=== PATIENT | female | born 1945 | race Caucasian/White ===

== ENCOUNTER 2021-12-12 10:32 | Inpatient (IN) | payer MEDICARE, BC ==
[~2021-12-12] VITALS: Ht 154.9 cm; Wt 52.6 kg
[2021-12-12 17:10] VITALS: BP 140/72
--- NOTE | 2021-12-12 17:15 | NUR ---
Admitted patient from [facility] via ambulance. Dx s/p L hip fracture, s/p ORIF. Body assessment done, noted with intact incision site on the left hip , no drainage identified and no bleeding seen. Noted with redness/skin rash on perineum area, and buttocks. Photo taken in chart. MD made aware of the admission and for the med recon. Patient denies pain, unable to see per her report, no issues with hearing. Kept comfortable, oriented to the room. no distress identified. will endorse to the next shift for continuity of care.
[2021-12-12] MEDS ORDERED: CLOT15CR5 TP (18:18)
[2021-12-12] MEDS ORDERED: PANT40TA2 PO (18:18)
[2021-12-12] MEDS ORDERED: LEVO50TA8 PO (18:18)
[2021-12-12] MEDS ORDERED: ACET650S13 RC (18:18)
[2021-12-12] MEDS ORDERED: LEVO250S3 PO (18:18)
[2021-12-12] MEDS ORDERED: ACET650T10 PO (18:18)
[2021-12-12] MEDS ORDERED: ISOS20TA8 PO (18:18)
[2021-12-12] MEDS ORDERED: HYDR50TA68 PO (18:18)
[2021-12-12] MEDS ORDERED: ENOX30DI5 SQ (18:18)
[2021-12-12] MEDS ORDERED: ATOR10TA PO (18:18)
[2021-12-12] MEDS ORDERED: NYST15CR TP (18:18)
[2021-12-12] MEDS ORDERED: ATEN50TA PO (18:18)
[2021-12-12] MEDS ORDERED: SENN-18 PO (18:18)
[2021-12-12] MEDS ORDERED: ALLO100T PO (18:18)
[2021-12-12] MEDS ORDERED: ONDA4TAB5 IVP (18:18)
[2021-12-12] MEDS ORDERED: HYDR-4209 PO (18:18)
[2021-12-12] MEDS ORDERED: ASPI81TA31 PO (18:18)
[2021-12-12] MEDS ORDERED: TEMA15CA5 PO (18:18)
[2021-12-12] MEDS ORDERED: DOCU250C14 PO (18:18)
[2021-12-12] MEDS ORDERED: BISA10SU61 RC (18:18)
[2021-12-12] MEDS ORDERED: LEVO500T90 PO (18:30)
[2021-12-12] MEDS ORDERED: HYDR100T27 PO (18:30)
[2021-12-12] MEDS ORDERED: SENNOSIDES 1 TABLET PO PRN (19:45)
[2021-12-12] MEDS ORDERED: BISACODYL 10 MG SUPP.RECT RC PRN (19:45)
[2021-12-12 20:42] VITALS: BP 143/55
[2021-12-12] MEDS: ISOSORBIDE DINITRATE 20 MG TABLET PO SCH (20:49)
[2021-12-12] MEDS: REMEDY ESSENTIAL ZINC PASTE 113 GM TOP SCH (20:49)
[2021-12-12] MEDS: ENOXAPARIN SODIUM 30 MG/0.3 ML DISP.SYRIN SQ SCH (20:57)
[2021-12-12] MEDS ORDERED: DOCUSATE SODIUM 100 MG CAPSULE PO SCH (21:00)
[2021-12-12] MEDS: hydrALAZINE HCL 50 MG TABLET PO SCH (21:04)
[2021-12-12] MEDS: TEMAZEPAM 15 MG CAPSULE PO PRN (22:03)
--- NOTE | 2021-12-13 02:00 | NUR ---
NSG: received patient lying on bed. Awake alert and oriented x3 with some periods of forgetfulness. patient is legally blind. On 3L via nasal cannula. Kept comfortable. assisted with adl's. Incontinent of bowel and bladder. call light w/in reach.
--- NOTE | 2021-12-13 04:01 | NUR ---
Awake alert and oriented x3-4 with some periods of fotgetfulness. VSS Needs attended. On 3L via nasal cannula. Kept comfortable. PM care done. Incontinent of bowel and bladder. No BM noted this shift. z
[2021-12-13 04:50] VITALS: BP 125/56
[2021-12-13] MEDS: PANTOPRAZOLE SODIUM 40 MG TABLET.DR PO SCH (06:10)
[2021-12-13] MEDS: LEVOTHYROXINE SODIUM 50 MCG TABLET PO SCH (06:11)
[2021-12-13 08:01] VITALS: BP 138/54
[2021-12-13] MEDS: ASPIRIN 81 MG TAB.CHEW PO SCH (08:27)
[2021-12-13] MEDS: ALLOPURINOL 100 MG TABLET PO SCH (08:27)
[2021-12-13] MEDS: levoFLOXacin 500 MG TABLET PO SCH (08:28)
[2021-12-13] MEDS: ATORVASTATIN 10 MG TABLET PO SCH (08:28)
[2021-12-13] MEDS: ISOSORBIDE DINITRATE 20 MG TABLET PO SCH ×2 (08:28→16:36)
[2021-12-13] MEDS: hydrALAZINE HCL 50 MG TABLET PO SCH ×3 (08:29→16:36)
[2021-12-13] MEDS: CLOTRIMAZOLE/BETAMET DIPROP CREAM 15 GM TUBE TP SCH ×2 (08:30→16:35)
[2021-12-13] MEDS: REMEDY ESSENTIAL ZINC PASTE 113 GM TOP SCH ×2 (08:30→20:38)
[2021-12-13] MEDS: NYSTATIN CREAM 30 GM TUBE TP SCH ×2 (08:30→16:35)
[2021-12-13] MEDS: HYDROCODONE/APAP 5-325MG TABLET PO PRN ×2 (08:48→17:48)
[2021-12-13] MEDS: DOCUSATE SODIUM 100 MG/10 ML LIQUID UDC PO SCH ×2 (08:48→20:32)
--- NOTE | 2021-12-13 11:59 | NUR ---
INTERDISCIPLINARY TEAM CONFERENCE
--- NOTE | 2021-12-13 14:46 | NUR ---
BSE completed: d/w RN regarding pt. Pt had difficulty troubling by stating, food was getting stuck. Pt is alert, interactive, blind, and able to follow directions premorbid diet: soft/thin dentition: functional/adequate. oral peripheral: symmetry oral phase: wFL for pureed and thin pharyngeal phase: no s/sx of aspiration with the current diet. clear vocal quality and no immediate or delayed cough is observed. Recommending to crush meds and given w/pureed or liquids straws ok pureed and thin follow aspiration precautions
[2021-12-13 16:16] VITALS: BP 125/62
--- NOTE | 2021-12-13 18:22 | NUR ---
The patient remained stable. PRN pain medication given 2x in the shift. Incision site intact, no bleeding or drainage noted. Still noted with redness to the buttocks/perineal area, applied skin protectant as ordered. DVT pumps in place. turned and repositioned for perfusion. ST eval was done today, agreed with the same assessment for puree diet and crushed pills. Assisted with all her needs. Kept call light within reach. Tolerated rehab this am. Frequent visual checks done. no distress identified during the shift. Aspiration precaution maintained. All due meds given. all needs attended. safety measures maintained. will endorse to the next shift for continuity of care.
[2021-12-13 20:00] VITALS: BP 122/57
[2021-12-13] MEDS: ENOXAPARIN SODIUM 30 MG/0.3 ML DISP.SYRIN SQ SCH (20:34)
[2021-12-13] MEDS: TEMAZEPAM 15 MG CAPSULE PO PRN (22:39)
[2021-12-14 04:00] VITALS: BP 120/60
--- NOTE | 2021-12-14 04:59 | NUR ---
NSG: slept will through the night. no c/o pain or discomfort at this time. assisted with adl's. kept clean and dry.call light w/in reach.
[2021-12-14] MEDS: PANTOPRAZOLE SODIUM 40 MG TABLET.DR PO SCH (06:07)
[2021-12-14] MEDS: LEVOTHYROXINE SODIUM 50 MCG TABLET PO SCH (06:07)
[2021-12-14 06:33] LABS: HEMATOCRIT 21.6 % (31.2-41.9); MEAN CORPUSCULAR HEMOGLOBIN 30.7 uug (24.7-32.8); MEAN CORPUSCULAR VOLUME 91.7 fL (75.5-95.3); PLATELET COUNT (AUTO) 307 K/uL (179-408)
[2021-12-14 07:25] LABS: IRON, SERUM 63 ug/dL (50-175)
[2021-12-14 07:29] LABS: ALANINE AMINOTRANSFERASE 14 U/L (14-59); ALKALINE PHOSPHATASE 167 U/L (50-136); ASPARTATE AMINOTRANSFERASE 21 U/L (15-37); BILIRUBIN,TOTAL 0.8 mg/dL (0.2-1.0); CARBON DIOXIDE 28 mmol/L (21-32); CHLORIDE 108 mmol/L (98-107); CHOLESTEROL 113 mg/dL (<200); CREATININE 2.7 mg/dL (0.6-1.3); GLUCOSE 90 mg/dL (74-106); HDL CHOLESTEROL 39 mg/dL (40-60); MAGNESIUM 1.7 mg/dL (1.8-2.4); PHOSPHOROUS 3.5 mg/dL (2.5-4.9); POTASSIUM 3.6 mmol/L (3.5-5.1); TOTAL PROTEIN, SERUM 5.3 g/dL (6.4-8.2); TRIGLYCERIDES 86 MG/DL (30-150); UREA NITROGEN, BLOOD 32 mg/dL (7-18)
[2021-12-14 07:43] VITALS: BP 119/52
[2021-12-14 07:50] LABS: THYROID STIMULATING HORMONE 6.255 mIU/mL (0.358-3.740)
[2021-12-14] MEDS: ATORVASTATIN 10 MG TABLET PO SCH (08:27)
[2021-12-14] MEDS: ASPIRIN 81 MG TAB.CHEW PO SCH (08:27)
[2021-12-14] MEDS: ALLOPURINOL 100 MG TABLET PO SCH (08:27)
[2021-12-14] MEDS: DOCUSATE SODIUM 100 MG/10 ML LIQUID UDC PO SCH ×2 (08:28→21:00)
[2021-12-14] MEDS: hydrALAZINE HCL 50 MG TABLET PO SCH ×3 (08:31→18:14)
[2021-12-14] MEDS: ISOSORBIDE DINITRATE 20 MG TABLET PO SCH ×2 (08:31→18:15)
[2021-12-14] MEDS: HYDROCODONE/APAP 5-325MG TABLET PO PRN (08:33)
[2021-12-14] MEDS: REMEDY ESSENTIAL ZINC PASTE 113 GM TOP SCH ×2 (08:33→21:07)
[2021-12-14] MEDS: CLOTRIMAZOLE/BETAMET DIPROP CREAM 15 GM TUBE TP SCH ×2 (08:34→18:15)
[2021-12-14] MEDS: NYSTATIN CREAM 30 GM TUBE TP SCH (08:34)
[2021-12-14] MEDS ORDERED: MAGNESIUM OXIDE 400 MG TABLET PO ONE (12:00)
[2021-12-14 16:21] VITALS: BP 142/65
--- NOTE | 2021-12-14 20:00 | NUR ---
NSG: received patient lying on bed. Awake alert and oriented x3 with some periods of forgetfulness. patient is legally blind. On 2L via nasal cannula. Kept comfortable. assisted with adl's. Incontinent of bowel and bladder. call light w/in reach.
[2021-12-14 20:26] VITALS: BP 122/64
[2021-12-14] MEDS: TEMAZEPAM 15 MG CAPSULE PO PRN (21:00)
[2021-12-14] MEDS: ENOXAPARIN SODIUM 30 MG/0.3 ML DISP.SYRIN SQ SCH (21:01)
[2021-12-15 04:14] VITALS: BP 117/56
--- NOTE | 2021-12-15 05:27 | NUR ---
NSG: slept will through the night. no c/o pain or discomfort at this time. assisted with adl's. good alejandro care provided for skin safety. kept clean and dry.call light w/in reach.
[2021-12-15] MEDS: LEVOTHYROXINE SODIUM 50 MCG TABLET PO SCH (06:22)
[2021-12-15] MEDS: PANTOPRAZOLE SODIUM 40 MG TABLET.DR PO SCH (06:22)
[2021-12-15 06:45] LABS: MEAN CORPUSCULAR HEMOGLOBIN 29.7 uug (24.7-32.8); MEAN CORPUSCULAR VOLUME 91.6 fL (75.5-95.3); PLATELET COUNT (AUTO) 284 K/uL (179-408)
[2021-12-15 07:02] LABS: CARBON DIOXIDE 26 mmol/L (21-32); CHLORIDE 107 mmol/L (98-107); CREATININE 2.5 mg/dL (0.6-1.3); GLUCOSE 88 mg/dL (74-106); MAGNESIUM 1.7 mg/dL (1.8-2.4); PHOSPHOROUS 3.4 mg/dL (2.5-4.9); POTASSIUM 3.9 mmol/L (3.5-5.1); UREA NITROGEN, BLOOD 31 mg/dL (7-18)
[2021-12-15 07:46] VITALS: BP 142/59
[2021-12-15] MEDS: MAGNESIUM SULFATE/D5W 100 ML IV SCH ×2 (10:30→10:52)
[2021-12-15] MEDS: ISOSORBIDE DINITRATE 20 MG TABLET PO SCH ×2 (10:46→17:00)
[2021-12-15] MEDS: ATORVASTATIN 10 MG TABLET PO SCH (10:46)
[2021-12-15] MEDS: hydrALAZINE HCL 50 MG TABLET PO SCH ×3 (10:46→17:00)
[2021-12-15] MEDS: DOCUSATE SODIUM 100 MG/10 ML LIQUID UDC PO SCH ×2 (10:47→20:38)
[2021-12-15] MEDS: ALLOPURINOL 100 MG TABLET PO SCH (10:47)
[2021-12-15] MEDS: levoFLOXacin 500 MG TABLET PO SCH (10:47)
[2021-12-15] MEDS: ASPIRIN 81 MG TAB.CHEW PO SCH (10:47)
[2021-12-15] MEDS: CLOTRIMAZOLE/BETAMET DIPROP CREAM 15 GM TUBE TP SCH ×2 (10:48→17:46)
[2021-12-15] MEDS: REMEDY ESSENTIAL ZINC PASTE 113 GM TOP SCH ×2 (10:48→20:38)
--- NOTE | 2021-12-15 10:55 | NUR ---
INDIVIDUALIZED PLAN OF CARE
--- NOTE | 2021-12-15 11:36 | NUR ---
WOUND CARE CONSULT: PT PRESENTS WITH RASH TO BUTTOCKS, PERINEUM AND INNER THIGHS, PRESENT ON ADMISSION. PT IS INCONTINENT. RECOMMENDATIONS MADE FOR SKIN PROTECTION. DISCUSSED WITH NURSING STAFF. CONCUR WITH CURRENT TREATMENT OF LOTRISONE CREAM, MAY FOLLOW WITH Ruddy TAYLOR MD IN AGREEMENT WITH PLAN OF CARE.
[2021-12-15] MEDS ORDERED: MAGNESIUM OXIDE 400 MG TABLET PO ONE (14:00)
[2021-12-15 16:13] VITALS: BP 135/59
--- NOTE | 2021-12-15 17:54 | NUR ---
pure wick installed to keep urine off skin rickie well
[2021-12-15 20:26] VITALS: BP 128/56
[2021-12-15] MEDS: ENOXAPARIN SODIUM 30 MG/0.3 ML DISP.SYRIN SQ SCH (20:39)
[2021-12-15] MEDS: TEMAZEPAM 15 MG CAPSULE PO PRN (20:47)
--- NOTE | 2021-12-16 04:24 | NUR ---
Awake alert and oriented x3-4 VSS No acute distress noted. Needs attended. Kept comfortable. Incontinent of bowel and bladder. Kept clean and dry. Will monitor patient. Fall precautions maintained. Siderails up for safety.
[2021-12-16 04:53] VITALS: BP 112/61
[2021-12-16] MEDS: PANTOPRAZOLE SODIUM 40 MG TABLET.DR PO SCH (06:18)
[2021-12-16] MEDS: LEVOTHYROXINE SODIUM 50 MCG TABLET PO SCH (06:19)
[2021-12-16 07:22] LABS: CARBON DIOXIDE 26 mmol/L (21-32); CHLORIDE 108 mmol/L (98-107); CREATININE 2.4 mg/dL (0.6-1.3); GLUCOSE 85 mg/dL (74-106); PHOSPHOROUS 3.4 mg/dL (2.5-4.9); POTASSIUM 3.9 mmol/L (3.5-5.1); UREA NITROGEN, BLOOD 32 mg/dL (7-18)
[2021-12-16 08:00] VITALS: BP 146/56
[2021-12-16] MEDS: DOCUSATE SODIUM 100 MG/10 ML LIQUID UDC PO SCH ×2 (09:00→20:33)
[2021-12-16] MEDS: ISOSORBIDE DINITRATE 20 MG TABLET PO SCH ×2 (09:16→17:23)
[2021-12-16] MEDS: hydrALAZINE HCL 50 MG TABLET PO SCH ×3 (09:16→17:23)
[2021-12-16] MEDS: ASPIRIN 81 MG TAB.CHEW PO SCH (09:16)
[2021-12-16] MEDS: ATORVASTATIN 10 MG TABLET PO SCH (09:17)
[2021-12-16] MEDS: ALLOPURINOL 100 MG TABLET PO SCH (09:18)
[2021-12-16] MEDS: CLOTRIMAZOLE/BETAMET DIPROP CREAM 15 GM TUBE TP SCH ×2 (09:19→17:24)
[2021-12-16] MEDS: REMEDY ESSENTIAL ZINC PASTE 113 GM TOP SCH ×2 (09:19→20:36)
--- NOTE | 2021-12-16 16:35 | NUR ---
Received patient lying on bed. Awake alert and oriented x3 able to let her needs known with some periods of forgetfulness. patient is legally blind Up in W/C with PT and had a shower by OT tolerated well. On 2L via nasal cannula pt requested to be wean from O2 we took O2 off x 15 min O2 sat yoko to 90% related to DR Fisher with new order for STAT CXR order noted and carried out. Kept comfortable. assisted with as need it with adl's.Safety precautions in place call light w/in reach.
[2021-12-16 16:53] VITALS: BP 126/56
[2021-12-16] MEDS ORDERED: FUROSEMIDE 40 MG TABLET PO ONE (17:45)
[2021-12-16 20:20] VITALS: BP 121/52
[2021-12-16] MEDS: ENOXAPARIN SODIUM 30 MG/0.3 ML DISP.SYRIN SQ SCH (20:36)
[2021-12-16] MEDS: TEMAZEPAM 15 MG CAPSULE PO PRN (20:38)
[2021-12-16] MEDS ORDERED: ALBUTEROL SULFATE 2.5 MG/3 ML NEBU NEB PRN (20:45)
--- NOTE | 2021-12-16 21:42 | NUR ---
Awake alert and oriented x4 all needs attended. Incontinent of urine and BM. Kept clean and dry. Purewick applied draining yellow urine. Took meds without difficulty. Repositioned for comfort. Turned q2 hrs. Will monitor patient. Siderails up for safety.VSS.
[2021-12-17 04:38] VITALS: BP 127/52
[2021-12-17] MEDS: LEVOTHYROXINE SODIUM 50 MCG TABLET PO SCH (06:10)
[2021-12-17] MEDS: PANTOPRAZOLE SODIUM 40 MG TABLET.DR PO SCH (06:10)
[2021-12-17 08:00] VITALS: BP 137/81
--- NOTE | 2021-12-17 08:00 | NUR ---
Received patient awake in bed. Easily arousable. AO x 3. On 3L nasal cannula. No distress noted at this time. No shortness of breath. Safety precautions in place. Will continue to monitor patient
[2021-12-17] MEDS: ASPIRIN 81 MG TAB.CHEW PO SCH (08:57)
[2021-12-17] MEDS: ATORVASTATIN 10 MG TABLET PO SCH (08:57)
[2021-12-17] MEDS: DOCUSATE SODIUM 100 MG/10 ML LIQUID UDC PO SCH ×3 (08:57→21:04)
[2021-12-17] MEDS: ALLOPURINOL 100 MG TABLET PO SCH (08:58)
[2021-12-17] MEDS: ISOSORBIDE DINITRATE 20 MG TABLET PO SCH ×2 (08:58→17:48)
[2021-12-17] MEDS: hydrALAZINE HCL 50 MG TABLET PO SCH ×3 (08:58→17:48)
[2021-12-17] MEDS: levoFLOXacin 500 MG TABLET PO SCH (08:58)
[2021-12-17] MEDS: CLOTRIMAZOLE/BETAMET DIPROP CREAM 15 GM TUBE TP SCH ×2 (08:59→18:07)
[2021-12-17] MEDS: PROTEIN SUPPLEMENT (PROSTAT) 30 ML LIQUID PO SCH (08:59)
[2021-12-17] MEDS: REMEDY ESSENTIAL ZINC PASTE 113 GM TOP SCH ×2 (08:59→21:06)
[2021-12-17 16:17] VITALS: BP 119/56
[2021-12-17 20:19] VITALS: BP 121/51
[2021-12-17] MEDS: ENOXAPARIN SODIUM 30 MG/0.3 ML DISP.SYRIN SQ SCH (21:05)
[2021-12-17] MEDS: TEMAZEPAM 15 MG CAPSULE PO PRN (21:05)
--- NOTE | 2021-12-17 21:15 | NUR ---
PATIENT IN BED. NOTED TO BE LEGALLY BLIND. AAOX4. ABLE TO MAKE NEEDS KNOWN. FREQUENTLY COMPLAINS OF MEDICATION REGIMEN, REFUSED TO TAKE DOCUSATE SODIUM. PT REQUESTED FOR PRN DOSE OF RESTORIL FOR INSOMNIA, GIVEN ORDERED. SAFETY PRECAUTIONS IN PLACE. WILL CONTINUE TO MONITOR.
[2021-12-18] VITALS (8 sets, daily range): BP systolic 118–142; BP diastolic 46–72
[2021-12-18] MEDS: LEVOTHYROXINE SODIUM 50 MCG TABLET PO SCH (06:33)
[2021-12-18] MEDS: PANTOPRAZOLE SODIUM 40 MG TABLET.DR PO SCH (06:33)
--- NOTE | 2021-12-18 06:51 | NUR ---
PATIENT SLEPT THROUGH THE NIGHT WITH NO COMPLAINTS. NO ACUTE DISTRESS NOTED AT THIS TIME. COMPLIANT WITH MORNING MEDICATIONS. PT WANTS MARGO, MATERNITY FLOOR SUPERVISOR TO REACH OUT TO HER SON SINCE THEY'VE BEEN TRYING TO GET A HOLD OF HIM BUT CANNOT. O2 TITRATED DOWN TO 2LPM, SATURATING AT 98%. SAFETY PRECAUTIONS MAINTAINED. WILL ENDORSE TO DAY SHIFT.
[2021-12-18 06:58] LABS: MEAN CORPUSCULAR HEMOGLOBIN 30.8 uug (24.7-32.8); MEAN CORPUSCULAR VOLUME 90.7 fL (75.5-95.3); PLATELET COUNT (AUTO) 208 K/uL (179-408)
[2021-12-18 07:01] LABS: HEMATOCRIT 20.9 % (31.2-41.9)
[2021-12-18 07:45] LABS: ALANINE AMINOTRANSFERASE 12 U/L (14-59); ALKALINE PHOSPHATASE 130 U/L (50-136); ASPARTATE AMINOTRANSFERASE 16 U/L (15-37); BILIRUBIN,TOTAL 0.7 mg/dL (0.2-1.0); CARBON DIOXIDE 29 mmol/L (21-32); CHLORIDE 104 mmol/L (98-107); CREATININE 2.3 mg/dL (0.6-1.3); GLUCOSE 93 mg/dL (74-106); MAGNESIUM 1.5 mg/dL (1.8-2.4); PHOSPHOROUS 4.1 mg/dL (2.5-4.9); POTASSIUM 3.7 mmol/L (3.5-5.1); TOTAL PROTEIN, SERUM 5.4 g/dL (6.4-8.2); UREA NITROGEN, BLOOD 28 mg/dL (7-18)
[2021-12-18] MEDS: PROTEIN SUPPLEMENT (PROSTAT) 30 ML LIQUID PO SCH ×2 (08:00→08:13)
[2021-12-18] MEDS: ISOSORBIDE DINITRATE 20 MG TABLET PO SCH ×2 (08:10→16:39)
[2021-12-18] MEDS: hydrALAZINE HCL 50 MG TABLET PO SCH ×3 (08:11→16:39)
[2021-12-18] MEDS: ASPIRIN 81 MG TAB.CHEW PO SCH (08:12)
[2021-12-18] MEDS: ATORVASTATIN 10 MG TABLET PO SCH (08:12)
[2021-12-18] MEDS: ALLOPURINOL 100 MG TABLET PO SCH (08:12)
[2021-12-18] MEDS: REMEDY ESSENTIAL ZINC PASTE 113 GM TOP SCH ×2 (08:13→20:02)
[2021-12-18] MEDS: CLOTRIMAZOLE/BETAMET DIPROP CREAM 15 GM TUBE TP SCH ×2 (08:13→16:40)
[2021-12-18] MEDS: DOCUSATE SODIUM 100 MG/10 ML LIQUID UDC PO SCH ×2 (08:13→20:02)
[2021-12-18] MEDS: HYDROCODONE/APAP 5-325MG TABLET PO PRN (08:34)
--- NOTE | 2021-12-18 11:43 | NUR ---
Reported Hgb 7.1, Hct 20.[address] Fihser, ordered to transfuse one unit of PRBCs. Patient refused to have BT. MD made aware. will continue to monitor. no s/s of active bleeding, denies discomfort. incision site intact.
[2021-12-18] MEDS ORDERED: MAGNESIUM OXIDE 400 MG TABLET PO ONE (12:00)
--- NOTE | 2021-12-18 12:28 | NUR ---
Explained and read the information regarding blood transfusion. Patient is aware of the risk. Still refused to have BT. Patient signed consent for refusal to blood transfusion, secured in chart. will continue monitor.
--- NOTE | 2021-12-18 17:15 | NUR ---
Patient changed her mind, she said she is okay to get blood transfusion. Consent obtained and signed, secured in the chart. made aware. Will continue to monitor.
--- NOTE | 2021-12-18 18:43 | NUR ---
The patient remained stable, incision site intact, no bleeding. Inserted IV to the left wrist, G20, tolerated well. Type and screen done by the lab, awaiting blood availability for transfusion. PRN pain medication given in the am prior to rehab. Assisted with all her needs. Kept call light within reach. Aspiration precaution maintained. Turning and repositioned done when in bed. Frequent visual checks done. no distress identified during the shift. all needs attended. safety measures maintained. will endorse to the next shift for continuity of care.
--- NOTE | 2021-12-18 19:30 | NUR ---
Received patient lying in bed. AAOX4. In no acute distress. Denies any pain or SOB at this time. O2 at 1LPM via NC in place. O2 sat at96%. Left wrist IV site intact and patent. Awaiting blood transfusion 1 unit PRBC. Needs assessed and attended to. Safety measure initiated and call light within reached.
[2021-12-18] MEDS: ENOXAPARIN SODIUM 30 MG/0.3 ML DISP.SYRIN SQ SCH (20:02)
--- NOTE | 2021-12-18 22:17 | NUR ---
Blood transfusion of 1 unit PRBC started at 2202. No adverse reaction noted at this time. Continue to monitor.
[2021-12-19 00:02] VITALS: BP 125/51
[2021-12-19 00:30] VITALS: BP 127/55
--- NOTE | 2021-12-19 00:30 | NUR ---
Completed transfusion of 1 unit PRBC. No adverse reaction noted. Patient tolerated procedure well.
[2021-12-19] MEDS: TEMAZEPAM 15 MG CAPSULE PO PRN ×2 (00:38→22:17)
[2021-12-19 04:27] VITALS: BP 137/53
[2021-12-19] MEDS: LEVOTHYROXINE SODIUM 50 MCG TABLET PO SCH (06:08)
[2021-12-19] MEDS: PANTOPRAZOLE SODIUM 40 MG TABLET.DR PO SCH (06:08)
--- NOTE | 2021-12-19 06:16 | NUR ---
AAOX4. In no acute distress. Incision site on left hip clean and dry. O2 at 1LPM via NC in place. Left wrist IV site intact and patent. Needs attended to and met. Safety measure maintained and call light within reached.
[2021-12-19 07:49] VITALS: BP_SYST 135; BP_SYST 140; BP_DIAS 59
[2021-12-19] MEDS: ALLOPURINOL 100 MG TABLET PO SCH (08:27)
[2021-12-19] MEDS: ISOSORBIDE DINITRATE 20 MG TABLET PO SCH ×2 (08:29→17:10)
[2021-12-19] MEDS: ATORVASTATIN 10 MG TABLET PO SCH (08:31)
[2021-12-19] MEDS: ASPIRIN 81 MG TAB.CHEW PO SCH (08:31)
[2021-12-19] MEDS: DOCUSATE SODIUM 100 MG/10 ML LIQUID UDC PO SCH ×2 (08:31→21:12)
[2021-12-19] MEDS: PROTEIN SUPPLEMENT (PROSTAT) 30 ML LIQUID PO SCH (08:45)
[2021-12-19] MEDS: levoFLOXacin 500 MG TABLET PO SCH (08:45)
[2021-12-19] MEDS: CHOLECALCIFEROL 1,000 UNIT TABLET PO SCH (09:14)
[2021-12-19] MEDS: hydrALAZINE HCL 50 MG TABLET PO SCH ×3 (09:15→17:10)
[2021-12-19] MEDS: REMEDY ESSENTIAL ZINC PASTE 113 GM TOP SCH ×2 (09:23→21:12)
[2021-12-19] MEDS: CLOTRIMAZOLE/BETAMET DIPROP CREAM 15 GM TUBE TP SCH ×2 (09:24→17:09)
[2021-12-19 15:40] VITALS: BP 129/56
[2021-12-19] MEDS: HYDROCODONE/APAP 5-325MG TABLET PO PRN ×2 (15:40→22:17)
[2021-12-19 19:55] LABS: HEMATOCRIT 26.1 % (31.2-41.9)
[2021-12-19 20:49] VITALS: BP 131/54
[2021-12-19] MEDS: ENOXAPARIN SODIUM 30 MG/0.3 ML DISP.SYRIN SQ SCH (21:15)
--- NOTE | 2021-12-20 04:34 | NUR ---
AAOx3-4 All needs attended. Fall precautions maintained. Call mathur within reach. All due meds given without difficulty. Meds given with apple sauce. No acute distress noted. Medicated for pain as needed. VSS.
[2021-12-20 04:39] VITALS: BP 124/49
[2021-12-20] MEDS: PANTOPRAZOLE SODIUM 40 MG TABLET.DR PO SCH (06:13)
[2021-12-20] MEDS: LEVOTHYROXINE SODIUM 50 MCG TABLET PO SCH (06:16)
[2021-12-20 08:00] VITALS: BP 140/55
[2021-12-20] MEDS: DOCUSATE SODIUM 100 MG/10 ML LIQUID UDC PO SCH ×3 (09:00→20:52)
[2021-12-20] MEDS: ATORVASTATIN 10 MG TABLET PO SCH (09:58)
[2021-12-20] MEDS: ASPIRIN 81 MG TAB.CHEW PO SCH (09:58)
[2021-12-20] MEDS: ALLOPURINOL 100 MG TABLET PO SCH (09:58)
[2021-12-20] MEDS: CHOLECALCIFEROL 1,000 UNIT TABLET PO SCH (09:58)
[2021-12-20] MEDS: REMEDY ESSENTIAL ZINC PASTE 113 GM TOP SCH ×2 (10:00→21:00)
[2021-12-20] MEDS: CLOTRIMAZOLE/BETAMET DIPROP CREAM 15 GM TUBE TP SCH ×2 (10:01→17:21)
[2021-12-20] MEDS: PROTEIN SUPPLEMENT (PROSTAT) 30 ML LIQUID PO SCH (10:01)
[2021-12-20] MEDS: ISOSORBIDE DINITRATE 20 MG TABLET PO SCH ×2 (10:03→17:27)
[2021-12-20] MEDS: hydrALAZINE HCL 50 MG TABLET PO SCH ×3 (10:04→17:27)
[2021-12-20] MEDS: HYDROCODONE/APAP 5-325MG TABLET PO PRN ×2 (12:49→20:53)
--- NOTE | 2021-12-20 15:31 | NUR ---
INTERDISCIPLINARY TEAM CONFERENCE
[2021-12-20 16:00] VITALS: BP 133/58
[2021-12-20 20:41] VITALS: BP 119/48
[2021-12-20] MEDS: ENOXAPARIN SODIUM 30 MG/0.3 ML DISP.SYRIN SQ SCH (20:54)
[2021-12-20 22:20] VITALS: BP 137/57
[2021-12-20] MEDS: TEMAZEPAM 15 MG CAPSULE PO PRN (22:47)
--- NOTE | 2021-12-20 22:55 | NUR ---
Patient given restoril dose for sleep and vomited, head of bed elevated.vital signs checked, cleaned and kept dry
--- NOTE | 2021-12-21 00:28 | NUR ---
patient is still awake. and unable to sleep.will call the snuff container inspector physician for orders
--- NOTE | 2021-12-21 00:54 | NUR ---
Restoril dose wasted as the patient vomited the dose.and will give another dose as per the charge nurse.
[2021-12-21] MEDS: TEMAZEPAM 15 MG CAPSULE PO PRN ×2 (00:57→21:30)
--- NOTE | 2021-12-21 01:57 | NUR ---
asleep Addendum: 12/21/21 at 0159 by [facility] RN1 RN medication need to be crushed and given with apple sauce, tolerated.
--- NOTE | 2021-12-21 02:50 | NUR ---
asleep. with no untoward manifestations
--- NOTE | 2021-12-21 04:31 | NUR ---
noted patient has hard productive cough,will inform physician in the morning. asleep.arousable
[2021-12-21 04:45] VITALS: BP 122/51
--- NOTE | 2021-12-21 05:45 | NUR ---
pharmacy called as the patient protonix dose is tablet and is unable to be crushed,order change to protonix packet as it can be crushed,
[2021-12-21] MEDS: LEVOTHYROXINE SODIUM 50 MCG TABLET PO SCH (06:37)
[2021-12-21 07:45] VITALS: BP 131/51
[2021-12-21] MEDS: PROTEIN SUPPLEMENT (PROSTAT) 30 ML LIQUID PO SCH (09:46)
[2021-12-21] MEDS: hydrALAZINE HCL 50 MG TABLET PO SCH ×3 (09:47→17:44)
[2021-12-21] MEDS: ASPIRIN 81 MG TAB.CHEW PO SCH (09:47)
[2021-12-21] MEDS: CHOLECALCIFEROL 1,000 UNIT TABLET PO SCH (09:48)
[2021-12-21] MEDS: PANTOPRAZOLE ORAL SUSPENSION 40 MG SUSPDR.PKT PO SCH (09:48)
[2021-12-21] MEDS: levoFLOXacin 500 MG TABLET PO SCH (09:49)
[2021-12-21] MEDS: ISOSORBIDE DINITRATE 20 MG TABLET PO SCH ×2 (09:56→17:45)
[2021-12-21] MEDS: ATORVASTATIN 10 MG TABLET PO SCH (09:56)
[2021-12-21] MEDS: CLOTRIMAZOLE/BETAMET DIPROP CREAM 15 GM TUBE TP SCH ×2 (09:58→17:46)
[2021-12-21] MEDS: REMEDY ESSENTIAL ZINC PASTE 113 GM TOP SCH ×2 (09:59→21:30)
[2021-12-21] MEDS: DOCUSATE SODIUM 100 MG/10 ML LIQUID UDC PO SCH ×3 (10:18→21:29)
[2021-12-21] MEDS: ALLOPURINOL 100 MG TABLET PO SCH (10:18)
[2021-12-21 15:14] VITALS: BP 108/51
--- NOTE | 2021-12-21 17:56 | NUR ---
PT remain AAOx3-4 legally blind.All needs attended. Fall precautions maintained. Call mathur within reach.All due meds given without difficulty was seen by rabbler with new order for soft diet . 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 Meds given with apple sauce. No acute distress noted, no c/o of pain . noted with new order for X-Ray of L hip as a f/U for S/P ORIF of L hip
[2021-12-21 20:00] VITALS: BP 112/55
[2021-12-21] MEDS: ENOXAPARIN SODIUM 30 MG/0.3 ML DISP.SYRIN SQ SCH (21:29)
[2021-12-21] MEDS: HYDROCODONE/APAP 5-325MG TABLET PO PRN (21:30)
[2021-12-22 04:17] VITALS: BP 94/58
[2021-12-22] MEDS: LEVOTHYROXINE SODIUM 50 MCG TABLET PO SCH (06:35)
[2021-12-22 07:47] VITALS: BP 135/55
[2021-12-22] MEDS: PROTEIN SUPPLEMENT (PROSTAT) 30 ML LIQUID PO SCH (08:00)
[2021-12-22] MEDS: DOCUSATE SODIUM 100 MG/10 ML LIQUID UDC PO SCH ×2 (09:40→20:36)
[2021-12-22] MEDS: hydrALAZINE HCL 50 MG TABLET PO SCH ×3 (09:40→17:36)
[2021-12-22] MEDS: ASPIRIN 81 MG TAB.CHEW PO SCH (09:40)
[2021-12-22] MEDS: CHOLECALCIFEROL 1,000 UNIT TABLET PO SCH (09:41)
[2021-12-22] MEDS: ISOSORBIDE DINITRATE 20 MG TABLET PO SCH ×2 (09:41→17:35)
[2021-12-22] MEDS: ATORVASTATIN 10 MG TABLET PO SCH (09:41)
[2021-12-22] MEDS: ALLOPURINOL 100 MG TABLET PO SCH (09:41)
[2021-12-22] MEDS: REMEDY ESSENTIAL ZINC PASTE 113 GM TOP SCH ×2 (09:42→20:36)
[2021-12-22] MEDS: CLOTRIMAZOLE/BETAMET DIPROP CREAM 15 GM TUBE TP SCH ×2 (09:42→17:37)
[2021-12-22] MEDS: levoFLOXacin 500 MG TABLET PO SCH (09:43)
[2021-12-22] MEDS: PANTOPRAZOLE ORAL SUSPENSION 40 MG SUSPDR.PKT PO SCH (09:50)
[2021-12-22 16:00] VITALS: BP 95/56
--- NOTE | 2021-12-22 16:04 | NUR ---
PT remain AAOx3-4 legally blind. respirations even and unlabored O2 at 2l via N/C O2 sat 97% All needs attended, assisted to BR as need it able to ambulate with FWW. Fall precautions maintained. Call mathur within reach.All due meds given without difficulty was seen by workers' compensation mediator with new order for soft diet . 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 Meds given with apple sauce tolerated well
[2021-12-22 20:00] VITALS: BP 126/56
[2021-12-22] MEDS: ENOXAPARIN SODIUM 30 MG/0.3 ML DISP.SYRIN SQ SCH (20:31)
[2021-12-22] MEDS: HYDROCODONE/APAP 5-325MG TABLET PO PRN (20:42)
[2021-12-22] MEDS: TEMAZEPAM 15 MG CAPSULE PO PRN (21:19)
[2021-12-23 04:00] VITALS: BP 117/56
[2021-12-23] MEDS: LEVOTHYROXINE SODIUM 50 MCG TABLET PO SCH (06:15)
--- NOTE | 2021-12-23 06:33 | NUR ---
Pt slept throughout the night, Restoril PRN given. No acute changes noted. Call light placed within reach. All needs attended. Will endorse to next shift for continuity of care.
[2021-12-23 07:46] VITALS: BP 134/54
[2021-12-23] MEDS: ATORVASTATIN 10 MG TABLET PO SCH (08:34)
[2021-12-23] MEDS: ASPIRIN 81 MG TAB.CHEW PO SCH (08:34)
[2021-12-23] MEDS: ALLOPURINOL 100 MG TABLET PO SCH (08:34)
[2021-12-23] MEDS: hydrALAZINE HCL 50 MG TABLET PO SCH ×3 (08:34→17:48)
[2021-12-23] MEDS: CHOLECALCIFEROL 1,000 UNIT TABLET PO SCH (08:34)
[2021-12-23] MEDS: PANTOPRAZOLE ORAL SUSPENSION 40 MG SUSPDR.PKT PO SCH (08:35)
[2021-12-23] MEDS: HYDROCODONE/APAP 5-325MG TABLET PO PRN ×2 (08:35→20:19)
[2021-12-23] MEDS: ISOSORBIDE DINITRATE 20 MG TABLET PO SCH ×2 (08:42→17:48)
[2021-12-23] MEDS: DOCUSATE SODIUM 100 MG/10 ML LIQUID UDC PO SCH ×2 (08:44→20:25)
[2021-12-23] MEDS: CLOTRIMAZOLE/BETAMET DIPROP CREAM 15 GM TUBE TP SCH ×2 (09:00→17:51)
[2021-12-23] MEDS: REMEDY ESSENTIAL ZINC PASTE 113 GM TOP SCH ×2 (09:00→20:19)
[2021-12-23 09:57] LABS: HEMATOCRIT 28.9 % (31.2-41.9); MEAN CORPUSCULAR HEMOGLOBIN 29.4 uug (24.7-32.8); PLATELET COUNT (AUTO) 217 K/uL (179-408)
[2021-12-23 10:08] LABS: ALANINE AMINOTRANSFERASE 12 U/L (14-59); ALKALINE PHOSPHATASE 109 U/L (50-136); ASPARTATE AMINOTRANSFERASE 13 U/L (15-37); BILIRUBIN,TOTAL 0.6 mg/dL (0.2-1.0); CARBON DIOXIDE 30 mmol/L (21-32); CHLORIDE 104 mmol/L (98-107); CREATININE 2.5 mg/dL (0.6-1.3); GLUCOSE 105 mg/dL (74-106); MAGNESIUM 1.7 mg/dL (1.8-2.4); POTASSIUM 3.8 mmol/L (3.5-5.1); UREA NITROGEN, BLOOD 21 mg/dL (7-18)
[2021-12-23] MEDS ORDERED: ALBUTEROL SULFATE 2.5 MG/3 ML NEBU NEB PRN (12:30)
--- NOTE | 2021-12-23 13:45 | NUR ---
Patient transferred to [facility] for wound care and continuation of antibiotics. No s/s of discomfort or distress. IV to right forearm left for continuation of IV antibiotics. Dressing to right let changed, no s/s of infection, patient states painful to change the dressing. All belongings and medications returned to the patient. Report given to DEE DEE Anguiano candy supervisor at [facility]. Transfer pack given to ambulance crew along with report.
[2021-12-23 16:00] VITALS: BP 135/52
[2021-12-23 20:00] VITALS: BP 122/52
[2021-12-23] MEDS: ENOXAPARIN SODIUM 30 MG/0.3 ML DISP.SYRIN SQ SCH (20:20)
[2021-12-23] MEDS: TEMAZEPAM 15 MG CAPSULE PO PRN (21:39)
[2021-12-24 04:00] VITALS: BP 130/53
[2021-12-24] MEDS: LEVOTHYROXINE SODIUM 50 MCG TABLET PO SCH (06:07)
[2021-12-24 07:30] VITALS: BP 142/56
[2021-12-24] MEDS: hydrALAZINE HCL 50 MG TABLET PO SCH ×3 (08:54→17:00)
[2021-12-24] MEDS: ASPIRIN 81 MG TAB.CHEW PO SCH (08:54)
[2021-12-24] MEDS: CHOLECALCIFEROL 1,000 UNIT TABLET PO SCH (08:55)
[2021-12-24] MEDS: PANTOPRAZOLE ORAL SUSPENSION 40 MG SUSPDR.PKT PO SCH (08:55)
[2021-12-24] MEDS: ATORVASTATIN 10 MG TABLET PO SCH (08:55)
[2021-12-24] MEDS: ALLOPURINOL 100 MG TABLET PO SCH (08:55)
[2021-12-24] MEDS: ISOSORBIDE DINITRATE 20 MG TABLET PO SCH ×2 (08:56→17:00)
[2021-12-24] MEDS: CLOTRIMAZOLE/BETAMET DIPROP CREAM 15 GM TUBE TP SCH ×2 (08:56→17:26)
[2021-12-24] MEDS: REMEDY ESSENTIAL ZINC PASTE 113 GM TOP SCH ×2 (08:56→20:33)
[2021-12-24] MEDS: DOCUSATE SODIUM 100 MG/10 ML LIQUID UDC PO SCH ×2 (08:59→20:26)
[2021-12-24 15:22] VITALS: BP 122/52
--- NOTE | 2021-12-24 19:00 | NUR ---
Received patient on bed, awake, alert, on room air, not in respiratory distress, saturating above 91%, no complaint of pain at this time.
[2021-12-24] MEDS: HYDROCODONE/APAP 5-325MG TABLET PO PRN (20:27)
[2021-12-24] MEDS: ENOXAPARIN SODIUM 30 MG/0.3 ML DISP.SYRIN SQ SCH (20:28)
[2021-12-24 20:54] VITALS: BP 121/52
[2021-12-24] MEDS: TEMAZEPAM 15 MG CAPSULE PO PRN (22:04)
[2021-12-25 04:58] VITALS: BP 135/52
[2021-12-25] MEDS: LEVOTHYROXINE SODIUM 50 MCG TABLET PO SCH (06:31)
--- NOTE | 2021-12-25 06:44 | NUR ---
Patient slept well, no shortness of breath noted, saturating at 97% at midnight and 92% at 4am on room air, no compliant of pain, patient in fair condition, for continuity of care.
[2021-12-25 07:37] VITALS: BP 138/60
[2021-12-25] MEDS: CHOLECALCIFEROL 1,000 UNIT TABLET PO SCH (09:37)
[2021-12-25] MEDS: hydrALAZINE HCL 50 MG TABLET PO SCH ×3 (09:43→17:42)
[2021-12-25] MEDS: ATORVASTATIN 10 MG TABLET PO SCH (09:45)
[2021-12-25] MEDS: ALLOPURINOL 100 MG TABLET PO SCH (09:45)
[2021-12-25] MEDS: ASPIRIN 81 MG TAB.CHEW PO SCH (09:45)
[2021-12-25] MEDS: PANTOPRAZOLE ORAL SUSPENSION 40 MG SUSPDR.PKT PO SCH (09:45)
[2021-12-25] MEDS: DOCUSATE SODIUM 100 MG/10 ML LIQUID UDC PO SCH ×2 (09:46→20:46)
[2021-12-25] MEDS: CLOTRIMAZOLE/BETAMET DIPROP CREAM 15 GM TUBE TP SCH ×2 (09:48→17:42)
[2021-12-25] MEDS: REMEDY ESSENTIAL ZINC PASTE 113 GM TOP SCH ×2 (09:48→20:46)
[2021-12-25] MEDS: levoFLOXacin 500 MG TABLET PO SCH (09:50)
[2021-12-25] MEDS: ISOSORBIDE DINITRATE 20 MG TABLET PO SCH ×2 (09:54→17:41)
--- NOTE | 2021-12-25 13:06 | NUR ---
Pt refused Apresoline/hydralazine medication for the 1300 med. BP: 123/54 KS: 73. Will continue to monitor.
[2021-12-25 16:20] VITALS: BP 138/54
[2021-12-25 20:36] VITALS: BP 127/57
[2021-12-25] MEDS: HYDROCODONE/APAP 5-325MG TABLET PO PRN (20:43)
[2021-12-25] MEDS: ENOXAPARIN SODIUM 30 MG/0.3 ML DISP.SYRIN SQ SCH (20:45)
[2021-12-25] MEDS: TEMAZEPAM 15 MG CAPSULE PO PRN (21:25)
[2021-12-26 04:16] VITALS: BP 138/54
[2021-12-26] MEDS: LEVOTHYROXINE SODIUM 50 MCG TABLET PO SCH (06:02)
--- NOTE | 2021-12-26 06:35 | NUR ---
No significant changes noted. Due medications given. All needs attended. Call light placed within reach. Will endorse to next shift.
[2021-12-26 08:00] VITALS: BP 167/92
[2021-12-26] MEDS: ASPIRIN 81 MG TAB.CHEW PO SCH (08:47)
[2021-12-26] MEDS: HYDROCODONE/APAP 5-325MG TABLET PO PRN ×2 (08:47→20:46)
[2021-12-26] MEDS: ATORVASTATIN 10 MG TABLET PO SCH (08:48)
[2021-12-26] MEDS: ALLOPURINOL 100 MG TABLET PO SCH (08:48)
[2021-12-26] MEDS: PANTOPRAZOLE ORAL SUSPENSION 40 MG SUSPDR.PKT PO SCH (08:48)
[2021-12-26] MEDS: REMEDY ESSENTIAL ZINC PASTE 113 GM TOP SCH ×2 (08:49→20:51)
[2021-12-26] MEDS: CLOTRIMAZOLE/BETAMET DIPROP CREAM 15 GM TUBE TP SCH ×2 (08:50→17:14)
[2021-12-26] MEDS: hydrALAZINE HCL 50 MG TABLET PO SCH ×3 (08:50→17:13)
[2021-12-26] MEDS: ISOSORBIDE DINITRATE 20 MG TABLET PO SCH ×2 (08:51→17:13)
[2021-12-26] MEDS: DOCUSATE SODIUM 100 MG/10 ML LIQUID UDC PO SCH ×2 (08:58→20:46)
[2021-12-26] MEDS: CHOLECALCIFEROL 1,000 UNIT TABLET PO SCH (09:01)
[2021-12-26 16:00] VITALS: BP 139/58
--- NOTE | 2021-12-26 19:30 | NUR ---
Received patient lying in bed. AAOx4. In no acute distress. Denies any SOB. Complain of left hip and back pain. Will provide [place] PRN per order. Left hip incision site healing well. Needs assessed and attended to. Safety measure initiated and call light within reached.
[2021-12-26 20:31] VITALS: BP 123/51
[2021-12-26] MEDS: ENOXAPARIN SODIUM 30 MG/0.3 ML DISP.SYRIN SQ SCH (20:45)
[2021-12-26] MEDS: TEMAZEPAM 15 MG CAPSULE PO PRN (22:07)
[2021-12-27 04:00] VITALS: BP 138/63
--- NOTE | 2021-12-27 05:40 | NUR ---
Patient slept well last night. Denies any further pain. No SOB. Due meds given and taken. Needs attended to and met. Safey measure maintained and call light within reached.
[2021-12-27] MEDS: LEVOTHYROXINE SODIUM 50 MCG TABLET PO SCH (06:10)
[2021-12-27 08:07] VITALS: BP 139/60
[2021-12-27] MEDS: DOCUSATE SODIUM 100 MG/10 ML LIQUID UDC PO SCH (08:42)
[2021-12-27] MEDS: ASPIRIN 81 MG TAB.CHEW PO SCH (08:42)
[2021-12-27] MEDS: hydrALAZINE HCL 50 MG TABLET PO SCH ×2 (08:42→13:04)
[2021-12-27] MEDS: ALLOPURINOL 100 MG TABLET PO SCH (08:43)
[2021-12-27] MEDS: ISOSORBIDE DINITRATE 20 MG TABLET PO SCH (08:43)
[2021-12-27] MEDS: PANTOPRAZOLE ORAL SUSPENSION 40 MG SUSPDR.PKT PO SCH (08:43)
[2021-12-27] MEDS: ATORVASTATIN 10 MG TABLET PO SCH (08:43)
[2021-12-27] MEDS: CHOLECALCIFEROL 1,000 UNIT TABLET PO SCH (08:43)
[2021-12-27] MEDS: REMEDY ESSENTIAL ZINC PASTE 113 GM TOP SCH (08:44)
[2021-12-27] MEDS: CLOTRIMAZOLE/BETAMET DIPROP CREAM 15 GM TUBE TP SCH (08:45)
--- NOTE | 2021-12-27 11:11 | NUR ---
Received patient lying ,resting in bed. AAOx4 Pt legally blind. In no acute distress. Denies any SOB remain at room air. No complain of pain at this time . Left hip incision site healing well. Needs assessed and attended . Safety measure in place call light within reached bed in low position alarm on assisted as needed to BR able to ambulate well with FWW .
[2021-12-27 13:04] VITALS: BP 118/59
--- NOTE | 2021-12-27 15:18 | NUR ---
12/27/21 Pt discharge home with 24 hours ocular care technologist. dc instructions discussed with patient and son Fermin over the phone they verbalized understanding. Patient Home Health arranged thru [facility] ph: [phone]. DMEs FWW , Wheelchair and bed side commode, all personal belongings given to vision specialist, ID band was removed. PT to F/U with PCP MD appointment: Dr. Babatunde Mcintyre Saturday 2pm ph: [phone] CD of last X-ray given. Pharmacy is [facility] ([facility]) ph: [phone]. PT left in stable condition via [facility] accompany by 3 EMT,s
== END 2021-12-27 15:20 | disposition home health service (06) | DRG 559 ==
PROVIDERS: ADMIT Physical Medicine & Rehabilitation Pain Medicine; ATTEND Physical Medicine & Rehabilitation Pain Medicine
PROC: 30233N1 Transfusion of Nonautologous Red Blood Cells into Peripheral Vein, Percutaneous Approach (ICD-10-PCS; principal; 2021-12-18)
DX: S72.002D Fracture of unspecified part of neck of left femur, subsequent encounter for closed fracture with routine healing (principal); E43 Unspecified severe protein-calorie malnutrition; J18.9 Pneumonia, unspecified organism; A41.9 Sepsis, unspecified organism; G93.41 Metabolic encephalopathy; J96.21 Acute and chronic respiratory failure with hypoxia; D68.59 Other primary thrombophilia; N17.9 Acute kidney failure, unspecified; I50.32 Chronic diastolic (congestive) heart failure; I13.0 Hypertensive heart and chronic kidney disease with heart failure and stage 1 through stage 4 chronic kidney disease, or unspecified chronic kidney disease; N18.4 Chronic kidney disease, stage 4 (severe); B36.9 Superficial mycosis, unspecified; D50.9 Iron deficiency anemia, unspecified; D63.8 Anemia in other chronic diseases classified elsewhere; E03.9 Hypothyroidism, unspecified; E88.09 Other disorders of plasma-protein metabolism, not elsewhere classified; F17.210 Nicotine dependence, cigarettes, uncomplicated; H35.30 Unspecified macular degeneration; H54.8 Legal blindness, as defined in USA; I25.10 Atherosclerotic heart disease of native coronary artery without angina pectoris; W01.0XXD Fall on same level from slipping, tripping and stumbling without subsequent striking against object, subsequent encounter; I25.2 Old myocardial infarction; I27.20 Pulmonary hypertension, unspecified; Z86.73 Personal history of transient ischemic attack (TIA), and cerebral infarction without residual deficits; I67.2 Cerebral atherosclerosis; M43.16 Spondylolisthesis, lumbar region; M48.061 Spinal stenosis, lumbar region without neurogenic claudication; I70.0 Atherosclerosis of aorta; M47.816 Spondylosis without myelopathy or radiculopathy, lumbar region; F32.A Depression, unspecified; Z96.642 Presence of left artificial hip joint; F41.9 Anxiety disorder, unspecified; G47.00 Insomnia, unspecified; Z91.018 Allergy to other foods; M85.80 Other specified disorders of bone density and structure, unspecified site; Z87.440 Personal history of urinary (tract) infections; Z87.442 Personal history of urinary calculi; E87.8 Other disorders of electrolyte and fluid balance, not elsewhere classified
CPT/HCPCS: 36415; 71045; 73502; 82652; 83550; 83735; 84100; 84443; 85018; 85025; 86850; 86900; 86901; 86920; 97161; 97535-GO-CO; A6209; J1650; J3475; J7050; J7070; J8499; P9016